=== PATIENT | female | born 2000 | race Caucasian/White ===

== ENCOUNTER 2021-03-15 11:17 | Emergency (ER) | payer OTHER, SELFPAY ==
[2021-03-15 11:25] VITALS: BP 142/84; PULSE 101; O2SAT 100
[2021-03-15 11:30] VITALS: BP 141/79; PULSE 96; RESP 18; TEMP 37; O2SAT 100; BMI 34.7
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
[2021-03-15] MEDS: Acetaminophen 325 MG TABLET 975 MG PO (12:04)
[2021-03-15 13:00] VITALS: RESP 18
== END 2021-03-15 13:09 | disposition home or self-care (01) ==
PROVIDERS: Emergency Provider Emergency Medicine
DX: S01.91XA Laceration without foreign body of unspecified part of head, initial encounter (principal); Y00.XXXA Assault by blunt object, initial encounter; Y93.89 Activity, other specified; Y92.039 Unspecified place in apartment as the place of occurrence of the external cause; Y99.9 Unspecified external cause status
CPT/HCPCS: 12001; 99283

== ENCOUNTER 2021-08-18 10:02 | Outpatient (REF) | payer OTHER, SELFPAY ==
[2021-08-18 12:04] LABS: Gamma Glutamyl Transpeptidase 19 U/L (7-33)
[2021-08-18 12:12] LABS: HBS Num1 3.09 mIU/mL (0-7.99); HBc Num1 0.08 S/CO (0.00-0.79); HBsAGNum1 0.18 S/CO (0.00-0.99); HIV AB/AG Nonreactive (Nonreactive); HIV Num 1 0.07 S/CO (0.00-0.99); Hepatitis A Antibody IgM 0.13 Index (0-0.79); Hepatitis B Core Antibody Nonreactive (Nonreactive); Hepatitis B Surface Antigen Negative (Negative); ~HepC Num1 0.12 S/CO (0.00-0.79); ~Hepatitis A Antibody IgM Nonreactive (Nonreactive); ~Hepatitis B Surface Antibody NONREACTIVE (Nonreactive); ~Hepatitis C Antibody Nonreactive (Nonreactive)
[2021-08-18 13:06] LABS: Syphilis Screen Nonreactive (Nonreactive)
[2021-08-18 14:02] LABS: CT PCR NOT DETECTED (Not Detect.); NG PCR NOT DETECTED (Not Detect.)
[2021-08-23 16:36] LABS: Chlamydia Pneumoniae IgA <1:16 titer (<1:16); Chlamydia Pneumoniae IgG <1:64 titer (<1:64); Chlamydia Pneumoniae IgM <1:10 titer (<1:10); Chlamydia Psittaci IgA <1:16 titer (<1:16); Chlamydia Psittaci IgG <1:64 titer (<1:64); Chlamydia Psittaci IgM <1:10 titer (<1:10); Chlamydia Trachomatis IgA <1:16 titer (<1:16); Chlamydia Trachomatis IgG <1:64 titer (<1:64); Chlamydia Trachomatis IgM <1:10 titer (<1:10)
== END 2021-08-18 10:03 | disposition home or self-care (01) ==
LOC: HO.HMGCLDS 10:02
PROVIDERS: Visit Provider Nurse Practitioner Acute Care
DX: Z01.84 Encounter for antibody response examination (principal); Z11.3 Encounter for screening for infections with a predominantly sexual mode of transmission; Z11.4 Encounter for screening for human immunodeficiency virus [HIV]; Z20.2 Contact with and (suspected) exposure to infections with a predominantly sexual mode of transmission
CPT/HCPCS: 82977; 86631; 86632; 86704; 86706; 86709; 86780; 86803; 87340; 87389; 87491; 87591

== ENCOUNTER 2021-08-18 17:01 | Emergency (ER) | payer OTHER, SELFPAY ==
--- NOTE | ~2021-08-18 | XR_ITS ---
EXAMINATION: XR ABDOMEN KUB CLINICAL INDICATION: Nonspecific diffuse abdominal pain with IUD in place COMPARISON: None TECHNIQUE: AP view of the abdomen. FINDINGS: The bowel gas pattern is normal with no evidence of ileus or obstruction. No unusual soft tissue calcifications are noted. An IUD is present in the pelvis. The bones are unremarkable. XR/XR KUB IMPRESSION: Unremarkable examination.
--- NOTE | ~2021-08-18 | US_ITS ---
EXAMINATION: US PELVIS CLINICAL INFORMATION: IUD position COMPARISON: None TECHNIQUE: Ultrasound of the pelvis is performed using both transabdominal and transvaginal transducers along with Doppler. Transvaginal imaging is performed due to inadequate visualization transabdominally. FINDINGS: Uterus: The uterus is anteverted and measures 8.3 x 4.4 x 5.5 cm. The tip of the IUD is in the lower uterine segment of the majority of the IUD is positioned within the cervix. Nabothian cysts are also present in the cervix. The double wall endometrial thickness is 0.3 mm. The uterus is smooth in contour and has normal myometrial echogenicity. No visible fibroid. Adnexa: Both ovaries are visualized. There is normal color flow to the adnexa. There is no ovarian torsion. There is no pelvic ascites or fluid collection. Right ovary measures 2.6 x 2.0 x 2.4 cm. Left ovary measures 3.1 x 1.6 x 2.6 cm. US/US pelvic and transvaginal IMPRESSION: The majority of the IUD is in the cervix.
[2021-08-18 17:22] VITALS: BP 130/72; PULSE 101; RESP 18; TEMP 36.8; O2SAT 98; BMI 39.6
[2021-08-18 19:59] LABS: MANUAL DIFF FLAG NO
[2021-08-18 20:01] LABS: Basophils Percent Auto 0.2 % (0-2); Eosinophils Absolute Auto 0.1 X10*3/uL (0.0-0.4); Eosinophils Percent Auto 1.1 % (0-4); Hematocrit 39.2 % (37.0-47.0); Hemoglobin 12.1 g/dl (12.0-16.0); Imm Gran Abs Auto 0.03 X10*3/uL (0.00-0.03); Imm Gran Pct Auto 0.3 % (0.0-0.4); Lymphocytes Absolute Auto 2.7 X10*3/uL (1.2-4.9); Mean Corpuscular HGB Conc 30.9 g/dl (31.0-35.0); Mean Corpuscular Hemoglobin 24.7 pg (27.0-33.0); Mean Platelet Volume 10.6 fL (9.4-12.3); Monocytes Absolute Auto 0.6 X10*3/uL (0.1-1.2); Monocytes Percent Auto 5.6 % (2-11); Neutrophils Absolute Auto 6.4 x10*3/uL (2.0-8.3); Neutrophils Percent Auto 64.8 % (45-73); Platelet Count 367 X10*3/uL (160-400); Red Cell Distribution Width 14.6 % (11.0-16.0); White Blood Count 9.8 X10*3/uL (4.8-10.8)
[2021-08-18 20:16] LABS: Alanine Aminotransferase 14 U/L (0-31); Albumin Level 4.7 g/dL (3.5-5.0); Alkaline Phosphatase 119 U/L (39-117); Anion Gap 13 (12-20); Aspartate Amino Transferase 18 U/L (5-31); Bilirubin Total 0.2 mg/dL (0.0-1.0); Blood Urea Nitrogen 12 mg/dL (9-16); Calcium 10.3 mg/dL (8.4-10.2); Carbon Dioxide 28 mmol/L (22-29); Chloride 102 mmol/L (96-108); Creatinine Clr Calc Pharmacy 139.1; Estimated Glomerular Filt Rate > 60; Glucose Random 91 mg/dL (60-115); Lipase 7 U/L (8-78); Potassium 4.1 mmol/L (3.3-5.1); Sodium 139 mmol/L (135-145)
[2021-08-18 20:22] LABS: HCG Quantitative < 2 mIU/mL
--- NOTE | 2021-08-18 23:09 | ED.ABDPAIN ---
HPI - Abdominal Pain General Chief Complaint: Abdominal Pain Stated Complaint: abd pain Time Seen by Provider: 08/18/21 23:09 Source: patient Mode of arrival: ambulatory Limitations: no limitations History of Present Illness HPI narrative: Patient with nonspecific diffuse abdominal pain last 1 month no nausea no vomiting no diarrhea no urinary symptoms no fever no chills denies any constipation was seen in the clinic today no urinary symptoms Related Data Previous Rx's Medication Instructions Recorded dicyclomine 20 mg tablet 20 mg PO QID PRN #20 tab 08/19/21 Allergies Allergy/AdvReac Type Severity Reaction Status Date / Time No Known Allergies Allergy Verified 08/17/21 15:04 Review of Systems Review of Systems Yes all other systems are reviewed and are negative [facility] Past Medical History Medical History No known health problems Social History Social History Advance Directives: No Advance Directives Information Provided: Yes Patient : No Physical Exam ED Vital Signs: Vital Signs - 24 hr 08/18/21 17:22 08/18/21 23:19 08/18/21 23:54 Temperature 98.2 F Pulse Rate 101 H 96 84 Respiratory Rate 18 16 18 Blood Pressure 130/72 154/108 H 135/71 Pulse Oximetry 98 100 100 08/19/21 02:14 Temperature Pulse Rate 83 Respiratory Rate 20 Blood Pressure 134/72 Pulse Oximetry 100 BMI result Body Mass Index 39.6 Appearance: Alert. Oriented X3. No acute distress. ENT: Pharynx normal. Oral Mucosa moist Neck: Normal inspection. Neck supple. CVS: Normal heart rate and rhythm. Pulses normal. Respiratory: No respiratory distress. Equal air entry bilateral, Abdomen: Soft and nontender. Bowel sounds are present, no mass palpable, no CVA tenderness no focal tenderness no guarding or rebound tenderness Skin: Skin warm and dry. Normal skin color. Normal skin turgor. Extremities: No lower extremity edema. No calf tenderness Neuro: Oriented X 3. MDM - Abdominal Pain MDM Narrative Medical decision making narrative: Patient IUD was in cervix which was removed easily. I will discharge patient home on Bentyl for abdominal pain Lab Data Attestation: I reviewed the patient's lab results. Result diagrams: 08/18/21 19:48 08/18/21 19:48 Labs: Lab Results 08/18/21 08/18/21 08/18/21 Range/Units 19:48 19:48 23:51 WBC 9.8 (4.8-10.8) X10*3/uL RBC 4.90 (4.20-5.50) X10*6/uL Hgb 12.1 (12.0-16.0) g/dl Hct 39.2 (37.0-47.0) % MCV 80.0 (80.0-98.0) fL MCH 24.7 L (27.0-33.0) pg MCHC 30.9 L (31.0-35.0) g/dl RDW 14.6 (11.0-16.0) % Plt Count 367 (160-400) X10*3/uL MPV 10.6 (9.4-12.3) fL Immature Gran % (Auto) 0.3 (0.0-0.4) % Neut % (Auto) 64.8 (45-73) % Lymph % (Auto) 28.0 (20-40) % [place] % (Auto) 5.6 (2-11) % Eos % (Auto) 1.1 (0-4) % Baso % (Auto) 0.2 (0-2) % Lymph # (Auto) 2.7 (1.2-4.9) X10*3/uL [place] # (Auto) 0.6 (0.1-1.2) X10*3/uL Eos # (Auto) 0.1 (0.0-0.4) X10*3/uL Baso # (Auto) 0.0 (0.0-0.2) X10*3/uL Abs Immat Gran (auto) 0.03 (0.00-0.03) X10*3/uL Absolute Neuts (auto) 6.4 (2.0-8.3) x10*3/uL Absolute Nucleated RBC 0.000 (0.0-0.012) X10*3/uL Nucleated RBC % (auto) 0.0 (0.0-0.2) /100WBC Sodium 139 (135-145) mmol/L Potassium 4.1 (3.3-5.1) mmol/L Chloride 102 (96-108) mmol/L Carbon Dioxide 28 (22-29) mmol/L Anion Gap 13 (12-20) BUN 12 (9-16) mg/dL Creatinine 0.68 (0.5-1.4) mg/dL Estim Creat Clear Calc 139.1 Estimated GFR > 60 Random Glucose 91 (60-115) mg/dL Calcium 10.3 H (8.4-10.2) mg/dL Total Bilirubin 0.2 (0.0-1.0) mg/dL AST 18 (5-31) U/L ALT 14 (0-31) U/L Alkaline Phosphatase 119 H (39-117) U/L Total Protein 8.0 (6.5-8.0) g/dL Albumin 4.7 (3.5-5.0) g/dL Lipase 7 L (8-78) U/L Beta HCG, Quant < 2 mIU/mL Urine Color YELLOW Urine Appearance HAZY Urine pH 7.0 (5.0-8.0) Ur Specific [place] 1.025 (1.005-1.025) Urine Protein TRACE (NEG-TRACE) MG/DL Urine Glucose (UA) NEG (NEG) MG/DL Urine Ketones 5 (NEG) MG/DL Urine Blood 3+ H (NEG) Urine Nitrite NEG (NEG) Ur Leukocyte Esterase NEG (NEG) Urine RBC 5-9 H (0) /HPF Urine WBC 0 (0-4) /HPF Ur Squamous Epith Cells 2+ /LPF Urine Bacteria 1+ /LPF Urine Mucus 2+ /LPF Discharge Plan Discharge Clinical Impression: IUD complication, Abdominal pain Patient Disposition: Home, Self-Care Instructions: Abdominal Pain (ED) Additional Instructions: IUd was not wrong place which was removed follow up with your pressing department supervisor Use other kinds of contraception Prescriptions: New dicyclomine 20 mg tablet 20 mg PO QID PRN (Reason: abdominal pain) Qty: 20 0RF
[2021-08-18 23:19] VITALS: BP 154/108; PULSE 96; RESP 16; O2SAT 100
[2021-08-18 23:54] VITALS: BP 135/71; PULSE 84; RESP 18; O2SAT 100
[2021-08-19] LABS: Appearance Urine HAZY; Color Urine YELLOW; Glucose Urine UA NEG (NEG); Leukocyte Esterase Urine NEG (NEG); Nitrite Urine NEG (NEG); Specific Gravity - Urine 1.025 (1.005-1.025); UACC Culture Trigger NO; Urine Blood 3+ (NEG); Urine Ketones 5 MG/DL (NEG); Urine Protein TRACE MG/DL (NEG-TRACE)
[2021-08-19] MEDS: Dicyclomine HCl 10 MG CAPSULE 20 MG PO (00:05)
[2021-08-19 00:15] LABS: Bacteria Urine 1+ /LPF; Mucus Urine 2+ /LPF; Squamous Epithelial Cell Urine 2+ /LPF; WBC Urine 0 /HPF (0-4)
[2021-08-19 02:14] VITALS: BP 134/72; PULSE 83; RESP 20; O2SAT 100
== END 2021-08-19 03:26 | disposition home or self-care (01) ==
PROVIDERS: Emergency Provider Internal Medicine
DX: T83.32XA Displacement of intrauterine contraceptive device, initial encounter (principal); R10.9 Unspecified abdominal pain
CPT/HCPCS: 36415; 58301; 74018; 76830; 76856; 80053; 81001; 81003; 83690; 84702; 85025; 99284

== ENCOUNTER 2024-02-02 19:28 | Emergency (ER) | payer OTHER, SELFPAY ==
--- NOTE | 2024-02-02 | ECG_ITS ---
Test Reason : SI Blood Pressure : / mmHG Vent. Rate : 090 BPM Atrial Rate : 090 BPM P-R Int : 140 ms QRS Dur : 100 ms QT Int : 360 ms P-R-T Axes : 033 048 030 degrees QTc Int : 440 ms Normal sinus rhythm Normal ECG No previous ECGs available Referred By: Generic ED Physician Electronically Signed By:DUONG LI MD
[2024-02-02 19:36] VITALS: PULSE 110; O2SAT 97
[2024-02-02 19:39] VITALS: BP 149/77; PULSE 87; RESP 16; TEMP 37.1; O2SAT 97; BMI 42.2
--- NOTE | 2024-02-02 19:53 | MHC.EDTECH ---
PATIENT CHANGED OVER INTO [facility]OWN, BELONGINGS PLACED IN LOCKER C2. BELONGINGS LIST COMPLETE
--- NOTE | 2024-02-02 20:00 | MHC.EDTECH ---
Patient is refusing all labs and ekg ,rn aware .
--- NOTE | 2024-02-02 20:46 | PC.NURSE ---
Pt does not want anyone here to see her. Plan of care ongoing.
[2024-02-02] MEDS: LORazepam 1 MG TABLET 2 MG PO (21:07)
--- NOTE | 2024-02-02 21:10 | PC.NURSE ---
Pt a&o, and tearful Pt medicated per mar. Plan of care ongoing.
--- NOTE | 2024-02-02 21:27 | PC.NURSE ---
Pt currently calm and resting quietly. Pt refusing EKG, LABS, and will not answer questions. Plan of care ongoing.
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
[2024-02-02 23:18] VITALS: BP 103/58; PULSE 82; RESP 16; TEMP 36.9; O2SAT 97
[2024-02-02 23:21] LABS: MANUAL DIFF FLAG NO
[2024-02-02 23:22] LABS: Basophils Percent Auto 0.3 % (0-2); Eosinophils Percent Auto 0.1 % (0-4); Hematocrit 34.8 % (37.0-47.0); Hemoglobin 10.8 g/dl (12.0-16.0); Imm Gran Abs Auto 0.03 X10*3/uL (0.00-0.03); Imm Gran Pct Auto 0.3 % (0.0-0.4); Lymphocytes Absolute Auto 3.2 X10*3/uL (1.2-4.9); Mean Corpuscular Hemoglobin 25.4 pg (27.0-33.0); Mean Corpuscular Volume 81.7 fL (80.0-98.0); Monocytes Absolute Auto 0.5 X10*3/uL (0.1-1.2); Neutrophils Absolute Auto 6.1 x10*3/uL (2.0-8.3); Neutrophils Percent Auto 62.3 % (45-73); Platelet Count 310 X10*3/uL (160-400); Red Blood Count 4.26 X10*6/uL (4.20-5.50); Red Cell Distribution Width 14.6 % (11.0-16.0); White Blood Count 9.9 X10*3/uL (4.8-10.8)
[2024-02-02 23:35] LABS: Anion Gap 13 (12-20); Blood Urea Nitrogen 7 mg/dL (9-16); Carbon Dioxide 22 mmol/L (22-29); Chloride 109 mmol/L (96-108); Creatinine Clr Calc Pharmacy 157.9; Estimated Glomerular Filt Rate > 60; Glucose Random 111 mg/dL (60-115); Potassium 3.4 mmol/L (3.3-5.1); Sodium 141 mmol/L (135-145)
[2024-02-02 23:48] LABS: Ethanol < 10 mg/dL; HCG Quantitative < 2 mIU/mL
--- NOTE | 2024-02-03 00:04 | PC.NURSE ---
this rn assumed care of pt, pt appears to be sleeping, respirations even and unlabored. 1:1 sitter at bedside.
--- NOTE | 2024-02-03 02:54 | PC.NURSE ---
at bedside attempting to speak to pt, pt not answering whether si/hi at this time but continues to get upset about family members. placing pt on section 12 for safety.
[2024-02-03 06:07] VITALS: RESP 16
--- NOTE | 2024-02-03 06:10 | PC.NURSE ---
pt requesting personal cell phone at this time to text boss, this rn explained to pt that we can not allow her to text her boss and not allowed to have personal phone. this rn offered to call pt boss, pt refused. pt began to become upset and start swearing. aware. pt refusing vitals.
--- NOTE | 2024-02-03 07:41 | PC.NURSE ---
this RN resumed care of pt at 0645. pt seemingly upset while sitting in stretcher - states that everyone keeps asking her how she's doing and that they walk away. pt notified/aware that there are other patient's that need to be tended to and that unfortunately due to her not having a urine sample, she is not able to be evaluated by care team yet. pt agreeable to provide urine. UA/DS obtained/sent to lab. pt otherwise has no complaints. denies pain. denies SI/HI at this time. no sob/wob noted. respirations even/unlabored. 1:1 sitter remains bedside. pending care team eval. plan of care ongoing.
[2024-02-03 07:53] LABS: Appearance Urine Hazy; Color Urine Red; Glucose Urine UA Negative (Negative); Specific Gravity - Urine > 1.030 (1.005-1.025); Urine Blood Large (3+) (Negative); Urine Ketones Negative (Negative); Urine Protein 100 (2+) mg/dL (Neg-Trace)
[2024-02-03 07:55] LABS: Leukocyte Esterase Urine Small (1+) (Negative); UMIC TRIGGER UACC YES
[2024-02-03 08:00] LABS: Amphetamine Screen Urine Not Detected (Not Detect); Barbiturates, Urine Not Detected (Not Detect); Benzodiazepines Screen Urine Not Detected (Not Detect); Buprenorphine Scr Not Detected (Not Detect); Cannabinoid Screen Urine POSITIVE (Not Detect); Cocaine Screen Urine Not Detected (Not Detect); Fentanyl, urine Not Detected (Not Detect); Methadone Screen, Urine Not Detected (Not Detect); Opiate Screen Urine Not Detected (Not Detect); Oxycodone Screen Urine Not Detected (Not Detect); Phencyclidine Screen Urine Not Detected (Not Detect)
[2024-02-03 08:06] LABS: Bacteria Urine None Seen (None Seen); Hyaline Casts Urine 0-2 /LPF (0-2); RBC Urine >20 /HPF (0-2); UACC Culture Trigger YES; WBC Urine 0-5 /HPF (0-5)
--- NOTE | 2024-02-03 08:20 | PC.NURSE ---
pt speaking w/ care team at this time.
--- NOTE | 2024-02-03 09:34 | PC.NURSE ---
belongings retrieved/provided to pt prior to discharge. care team arranged lyft. pt leaving facility now.
--- NOTE | 2024-02-06 11:26 | MHC.CARE ---
Referral for [facility] has been completed
== END 2024-02-03 09:34 | disposition home or self-care (01) ==
PROVIDERS: Emergency Provider Emergency Medicine
DX: R45.851 Suicidal ideations (principal); R46.89 Other symptoms and signs involving appearance and behavior; Z63.8 Other specified problems related to primary support group; R45.1 Restlessness and agitation
CPT/HCPCS: 36415; 80048; 80307; 81001; 84702; 85025; 87086; 87147; 93005; 99285; S9485

== ENCOUNTER → 2024-02-02 23:14 | Outpatient (BNV) | payer OTHER, SELFPAY | PROVIDERS: Emergency Provider Emergency Medicine; Visit Provider Internal Medicine Cardiovascular Disease | DX: R41.82 Altered mental status, unspecified (principal) | CPT/HCPCS: 93010 ==